=== PATIENT | female | born 1955 | race Caucasian/White ===

== ENCOUNTER 2019-03-11 09:43 | Emergency (ER) | payer OTHER ==
--- NOTE | 2019-03-11 11:37 | ED Physician Documentation ---
PD HPI OPHTHO - Stated complaint Stated Complaint: POST OP CATARACT COMPLICATIONS - Chief complaint Chief Complaint: Heent - History obtained from History obtained from: Patient - History of Present Illness Timing - onset: How many weeks ago (2) Timing - duration: Weeks (2) Timing - details: Gradual onset, Still present Location: Left Quality / character: Aching Associated symptoms: Other (floater and a shadow now). No: Redness, Swelling, Tearing, Discharge, FB sensation Contributing factors: Other (recent cataract surgery) Similar symptoms before: Has not had sx before Recently seen: Surgery - Additional information Additional information: 63-year-old female has returned from [place] where she had a cataract procedure done her left eye. She states the following that her eye site was perfect and she is wearing glasses for reading. 2 weeks ago she began to notice floaters in the left eye. She has had the development of a shadow in the lower visual field today and she has become concerned. She feels her vision is blurred now. Review of Systems Constitutional: denies: Fever, Chills Eyes: reports: Decreased vision. 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 HEENT: Other Psych: Depression Musculoskeletal: None Derm: None - Past Surgical History General: Colonoscopy /LATEX THREAD MACHINE OPERATOR: Hysterectomy - Allergies Allergies/Adverse Reactions: Allergies Allergy/AdvReac Type Severity Reaction Status Date / Time azithromycin Allergy Unknown Verified 03/11/19 09:51 Penicillins Allergy Unknown Verified 03/11/19 09:51 - Social History Does the pt smoke?: Yes Smoking Status: Current every day smoker PD ED PE NORMAL - Vitals Vital signs reviewed: Yes (normal ) - General General: Alert and oriented X 3, No acute distress, Well developed/nourished - HEENT HEENT: Atraumatic, PERRL, EOMI, Other (I am not able to visualize the retina adequately on non-dilated exam. ) - Neck Neck: Supple, no meningeal sign, No bony TTP - Respiratory Respiratory: No respiratory distress - Derm Derm: Normal color, Warm and dry, No rash - Extremities Extremities: No deformity, No edema - Neuro Neuro: Alert and oriented X 3, php architect 2-12 intact, No motor deficit, No sensory deficit, Normal speech Eye Opening: Spontaneous Motor: Obeys Commands Verbal: Oriented GCS Score: 15 - Psych Psych: Normal mood, Normal affect Results - Vitals Vitals: Vital Signs - 24 hr 03/11/19 09:49 Temperature 35.7 C L Heart Rate 86 Respiratory 14 Rate Blood Pressure 126/70 O2 Saturation 97 Oxygen O2 Source Room air Procedures - Bedside sono Bedside sono by EMP: With the use of bedside ultrasound the left eye is examined and there is no gross evidence of retinal detachment. PD MEDICAL DECISION MAKING - ED course Complexity details: considered differential, d/w patient ED course: 63-year-old female status post cataract procedure has developed symptoms in the left eye of floaters and a shadow. Today on exam in the emergency department I am not able to see the retina but on ultrasound exam there is no evidence of gross detachment. I have contacted Dr. Wu and Flory Page and he is graciously agreed to see the patient this afternoon in follow-up. Departure - Departure Disposition: 01 Home, Self Care Clinical Impression: Vitreous floaters of left eye Condition: Stable Instructions: Flashes and Floaters Follow-Up: Enzo Wu MD [Provider Admit Priv/Credential] - Comments: Follow-up with Dr. Wu this afternoon and Flory Page.
[2019-03-11 12:41] VITALS: BP 127/77
== END 2019-03-11 12:39 | disposition home or self-care (01) ==
LOC: ED 09:43
DX: H43.392 Other vitreous opacities, left eye (principal); Z98.42 Cataract extraction status, left eye; E11.9 Type 2 diabetes mellitus without complications; F17.200 Nicotine dependence, unspecified, uncomplicated
CPT/HCPCS: 99281; 99282

== ENCOUNTER 2020-09-01 07:11 | Outpatient (CLI) | payer MEDICAID, MEDICARE ==
[2020-09-01 12:40] LABS: BASOPHILS % (AUTO) 0.5 %; EOSINOPHILS # (AUTO) 0.1 10^3/uL (0.0-0.7); HCT - HEMATOCRIT 39.8 % (37.0-47.0); HGB - HEMOGLOBIN 12.6 g/dL (12.0-16.0); LYMPHOCYTES # (AUTO) 2.2 10^3/uL (1.5-3.5); LYMPHOCYTES % (AUTO) 34.7 %; MEAN CORPUSCULAR HEMOGLOBIN 28.4 pg (27.0-31.0); MEAN CORPUSCULAR HGB CONC 31.7 g/dL (32.0-36.0); MEAN CORPUSCULAR VOLUME 89.8 fL (81.0-99.0); MEAN PLATELET VOLUME 10.1 fL (7.9-10.8); MONOCYTES # (AUTO) 0.3 10^3/uL (0.0-1.0); MONOCYTES % (AUTO) 4.8 %; NEUTROPHILS # (AUTO) 3.7 10^3/uL (1.5-6.6); NEUTROPHILS % (AUTO) 57.8 %; PLT - PLATELET COUNT 264 10^3/uL (130-450); RED BLOOD COUNT 4.43 10^6/uL (4.20-5.40); RED CELL DISTRIBUTION WIDTH 13.2 % (12.0-15.0); WHITE BLOOD COUNT 6.5 x10^3/uL (4.8-10.8)
[2020-09-01 13:24] LABS: ALBUMIN 4.1 g/dL (3.2-5.5); ALBUMIN/GLOBULIN RATIO 1.3 (1.0-2.2); ALKALINE PHOSPHATASE 71 IU/L (42-121); ALT ALANINE AMINOTRANSFERASE 38 IU/L (10-60); AST ASPARTATE AMINOTRANSFERASE 38 IU/L (10-42); BILIRUBIN,TOTAL 0.4 mg/dL (0.2-1.0); BUN - BLOOD UREA NITROGEN 11 mg/dL (6-20); CALCIUM 9.4 mg/dL (8.5-10.3); CARBON DIOXIDE - CO2 24 mmol/L (21-32); CHLORIDE 104 mmol/L (101-111); CHOL/HDL RATIO 4.4 (<4.4); CHOLESTEROL 246 mg/dL; CREATININE 1.1 mg/dL (0.4-1.0); GFR - MDRD 50 (>89); GLUCOSE 128 mg/dL (70-100); HDL CHOLESTEROL 56 mg/dL; LDL CHOLESTEROL,CALCULATED 157 mg/dL; LDL/HDL RATIO 2.8 (<4.4); POTASSIUM 3.7 mmol/L (3.5-5.0); SODIUM 139 mmol/L (135-145); TOTAL PROTEIN 7.2 g/dL (6.7-8.2); TRIGLYCERIDES 166 mg/dL; VLDL CHOLESTEROL 33 mg/dL
[2020-09-01 13:35] LABS: THYROID STIMULATING HORMONE 6.78 uIU/mL (0.34-5.60)
[2020-09-01 13:52] LABS: CREATININE,URINE 260.5 mg/dL; MICROALBUM/CREATININE RATIO,UR 4.6 ug/mg (<30.0); MICROALBUMIN,URINE 1.2 mg/dL (0-300.0)
[2020-09-01 13:54] LABS: ESTIMATED AVERAGE GLUCOSE 134 mg/dL (70-100); HEMOGLOBIN A1c% 6.3 % (4.27-6.07)
[2020-09-01 15:25] LABS: FREE T4 (FREE THYROXINE) 0.97 ng/dL (0.58-1.64)
== END 2020-09-01 23:59 | disposition home or self-care (01) ==
LOC: LAB.WCP 07:11
PROVIDERS: ATTEND Nurse Practitioner
DX: E78.5 Hyperlipidemia, unspecified (principal); R73.03 Prediabetes; K57.90 Diverticulosis of intestine, part unspecified, without perforation or abscess without bleeding
CPT/HCPCS: 36415; 80053; 80061; 82043; 82570; 83036; 83721; 84439; 84443; 85025

== ENCOUNTER 2021-04-01 16:20 | Outpatient (CLI) | payer MEDICARE | END 2021-04-01 23:59 | disposition home or self-care (01) | LOC: LAB.WCP 16:20 | PROVIDERS: ATTEND Physician Assistant Medical | DX: R07.9 Chest pain, unspecified (principal); Z20.822 Contact with and (suspected) exposure to COVID-19 ==

== ENCOUNTER 2021-04-07 10:23 | Outpatient (CLI) | payer MEDICARE ==
--- NOTE | 2021-04-07 16:39 | XRAY Report ---
PROCEDURE: Chest 2 View X-Ray INDICATIONS: CHEST PAIN TECHNIQUE: 2 view(s) of the chest. COMPARISON: None. FINDINGS: Surgical changes and devices: None. Lungs and pleura: No pleural effusions or pneumothorax. Lungs are clear. Mediastinum: Mediastinal contours are normal. Heart size is normal. Bones and chest wall: No suspicious bony abnormalities. Soft tissues appear unremarkable. IMPRESSION: No acute pulmonary process. Reviewed by: Louise Hollins MD on 04/07/2021 4:38 PM PDT Approved by: Louise Hollins MD on 04/07/2021 4:38 PM PDT Station ID: [id number]
== END 2021-04-07 10:24 | disposition home or self-care (01) ==
LOC: DI 10:23
PROVIDERS: ATTEND Physician Assistant Medical
DX: R07.9 Chest pain, unspecified (principal)

== ENCOUNTER 2021-04-09 09:49 | Outpatient (CLI) | payer MEDICARE ==
--- NOTE | 2021-04-09 11:00 | SLEEP CARE CONSULTATION ---
Information from patient questionnaire entered by Nayeli Franks. I have reviewed and concur with the information entered by Nayeli Franks. This document represents the service I personally performed and the decisions made by me, Alona Sawyer ARNP. History of Present Illness Service Date and Time: 04/09/2021 0949 Reason for Visit: New patient Chief Complaint: reports: Insomnia, Unrefreshed sleep, Observed pauses in breathing, Frequent awakenings at night, Other (history of brain tumors) Date of Onset: since 2002 Usual bedtime: 8-9 pm Time it takes to fall asleep: 4 hours Snores at night: No (unknown) Observed to quit breathing while asleep: Yes Number of times waking at night: 3-4 Reasons for waking at night: reports: Bathroom, Other (unknown reason) Toss, Turn, or Twitch while sleeping: Yes Recalls having dreams: Yes Usually gets out of bed at: 5-8 am Feels refreshed in the morning: No Morning headache: No (she wakes up with pressure in her head but not recognizing as headache) Sleepy or fatigued during the day: Yes Ever fallen asleep while driving: No (had to dust puller, drowsy driving, no accidents) Takes day naps: Yes (sometimes) Dreams during day naps: No Prior sleep studies: No Additional HPI information: I had the pleasure of seeing RANULFO MCNAIR today regarding the possibility of her having a sleep disorder. Her current complaints are fatigue, insomnia, observed pauses in breathing, and unrefreshed sleep. She had brain tumor removed in 2002 and has had sleep issues since, it caused isomnia. She has been taking tamazepam and it is not working well anymore. She is taking 4 hours to get to sleep with the medication. She will sleep for 4-5 hours on average with at least 3 awakenings during the night. Some nights she does not sleep at all. She doesn't know if she snores. She was in a motel room with a friend who told her she stopped breathing but didn't mention snoring. She does wake herself up talking. She doesn't dream often. She is almost always tired and does not wake up refreshed. She has history of depression and diabetes. 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 Patient is and lives in [place]. Have you smoked in the past 12 months: Yes Cigarettes per day (20/pack): 0 (maybe 4 per week) Years of smokin (unknown) Smoking Pack Years: 0 Alcohol use: Yes Alcohol amount and frequency: 2-3 beers rarely Caffeine use: Yes Caffeine amount and frequency: 1 cup of coffee in the morning, sometimes a diet pepsi Family History Family history of sleep disordered breathing: No Allergies and Home Medications Drug allergies reviewed: Yes (azithromycin, penicillin, cabbage, erythromycin) Home medication list reviewed: Yes Allergy and home medication list: vitamin D Fluoxetine Bupropion Lisinopril Aspirin Metformin Tamazepam Levocetirzine Pseudoephedrine, prn Ibuprofen, prn Ventolin, prn Review of Systems Weight gain over past 5 years: 10 Cardiovascular: denies: high blood pressure Respiratory: reports: shortness of breath, chronic cough (recent) Gastrointestinal: reports: heartburn (recent) Neurological: reports: seizure (history prior to tumor removal), head trauma (brain tumor) Psychiatric: reports: depression Ear/Nose/Throat: reports: nasal congestion, sinus problems, tonsillectomy, wisdom teeth removed. denies: injury to nose Endocrine: reports: unexplained weakness Musculoskeletal: reports: joint pain Immunologic: reports: sneezing, rash, itching, allergies to food or environment (cabbage) Physical Exam Blood Pressure: 141/73 Cuff size: wrist Heart Rate: 82 O2 Saturation: 98 Height: 5 ft 1 in Weight: 185 lb Body Mass Index: 34.9 BMI Classification: Obese Neck circumference: 14.25 (inches) Mouth and throat: narrow oropharynx Soft palate: normal Hard palate: normal Uvula: normal Uvula visualization: 100% Mallampati Class I Tongue: enlarged in size with teeth haque on lateral edges Tonsils: absent bilaterally Chin and jaw: normal size and position Neck: normal w/o lymphadenopathy or thyromegaly Heart: regular rate and rhythm Lungs: clear bilaterally Impression and Plan 1. Suspected Obstructive Sleep Apnea-Hypopnea Syndrome, as suggested by a history of observed cessation of breath while asleep, frequent awakening during the night, unrefreshed sleep, cognitive impairment, and excessive daytime sleepiness. Narrow oropharynx and obesity are common predisposing factors for obstructive sleep apnea-hypopnea syndrome. I recommend proceeding to polysomnography to confirm the diagnosis and to assess severity. If the patient has significant sleep disordered breathing, a manual CPAP titration study will also be performed to find the optimal treatment pressure. I informed the patient of what the sleep studies involve and after some discussion, obtained agreement to proceed. The pathophysiology of obstructive sleep apnea-hypopnea syndrome was discussed with the patient and health risks of cardiovascular and cerebrovascular disease if not treated. Risks of drowsy driving discussed in detail and patient advised to avoid long distance driving and to dust puller at the first sign of drowsiness. Patient agreed to plan. * Schedule polysomnography +- manual CPAP titration study and return in 1-2 we eks after the study to discuss result and initiate therapy. * Avoid long distance driving or driving when feeling sleepy. * Avoid alcohol, sedative and muscle relaxant around bedtime. * Attempt to lose weight. * Review instructions provided by trained office staff on how to prepare for the sleep study. * Return for follow-up after sleep study completed. Counseling Topics: Weight loss health impact Visit Type: In Office Time Spent with Patient (minutes): 33 Provider Statement: I spent 100% of the Face to Face Visit with the patient with greater than 50% spent counseling the patient and coordination of care.
[2021-04-09 11:01] VITALS: BP 141/73
== END 2021-04-09 09:50 | disposition home or self-care (01) ==
LOC: SC 09:49
PROVIDERS: ATTEND Nurse Practitioner Family
DX: G47.10 Hypersomnia, unspecified (principal); R06.81 Apnea, not elsewhere classified; G47.8 Other sleep disorders; R41.89 Other symptoms and signs involving cognitive functions and awareness; E66.9 Obesity, unspecified; Z68.34 Body mass index [BMI] 34.0-34.9, adult
CPT/HCPCS: 99203; G0463; 99212

== ENCOUNTER 2021-07-29 19:30 | Outpatient (CLI) | payer MEDICARE | END 2021-07-29 19:31 | disposition home or self-care (01) | LOC: SC 19:30 | PROVIDERS: ATTEND Nurse Practitioner Family | DX: G47.10 Hypersomnia, unspecified (principal); G47.8 Other sleep disorders; R06.81 Apnea, not elsewhere classified; E11.9 Type 2 diabetes mellitus without complications; F32.9 Major depressive disorder, single episode, unspecified; G47.61 Periodic limb movement disorder | CPT/HCPCS: 95810 ==

== ENCOUNTER 2024-02-23 10:41 | Outpatient (CLI) | payer MEDICARE ==
[2024-02-23 12:06] LABS: ALBUMIN 4.4 g/dL (3.2-5.5); ALBUMIN/GLOBULIN RATIO 1.6 (1.0-2.2); BILIRUBIN,TOTAL 0.3 mg/dL (0.2-1.0); CREATININE 0.9 mg/dL (0.6-1.3); POTASSIUM 4.8 mmol/L (3.5-4.5); TOTAL PROTEIN 7.1 g/dL (6.4-8.9)
[2024-02-23 12:31] LABS: ESTIMATED AVERAGE GLUCOSE 163 mg/dL (70-100); HEMOGLOBIN A1c% 7.3 % (4.27-6.07)
== END 2024-02-23 10:42 | disposition home or self-care (01) ==
LOC: LAB.N 10:41
PROVIDERS: ATTEND Physician Assistant Medical
DX: R73.03 Prediabetes (principal)
CPT/HCPCS: 36415; 80053; 83036

== ENCOUNTER 2024-03-13 11:17 | Outpatient (CLI) | payer MEDICARE ==
--- NOTE | 2024-03-14 10:37 | Mammography Report ---
BILATERAL DIGITAL SCREENING MAMMOGRAM 3D/2D: 03/13/2024 CLINICAL: Routine screening. Comparison is made to exam dated: 02/12/2018 mammogram - [facility]. Both breasts are almost entirely fatty (category a/<25% glandular tissue). No significant masses, calcifications, or other findings are seen in either breast. There has been no significant interval change. IMPRESSION: NEGATIVE There is no mammographic evidence of malignancy. A 1 year screening mammogram is recommended. Based on the Tyrer Cuzick model (a risk assessment model) the patient's lifetime risk is 2.5% and her 10 year risk is 1.5%. According to the ACR, ACS, and NCCN guidelines, an annual breast MRI exam rachna g with mammogram is recommended if the patient's lifetime risk is 20% or greater. This exam was interpreted at Station ID: [id number]. NOTE: For mammograms, a report in lay terms will be sent to the patient. Approximately 15% of breast malignancies will not be visualized mammographically. In the management of a palpable breast mass, a negative mammogram must not discourage biopsy of a clinically suspicious lesion. Electronically Signed By: Michela chávez/zahraa:03/13/2024 12:53:01 letter sent: No_Letter ACR BI-RADS Category 1: Negative 3341F PARENCHYMAL PATTERN: (F) - The breast(s) demonstrate(s) diffuse fatty replacement. BI-RADS CATEGORY: (1) - 1 RECOMMENDATION: (ANNUAL) - Recommend routine annual screening mammography. [id number] 1 year screening LATERALITY: (B)
== END 2024-03-13 11:18 | disposition home or self-care (01) ==
LOC: DI 11:17
DX: Z12.31 Encounter for screening mammogram for malignant neoplasm of breast (principal)

== ENCOUNTER 2024-05-07 07:14 | Day surgery (SDC) | payer MEDICARE, MEDICAID ==
[2024-05-07] MEDS: LACTATED RINGERS 1,000 ML IV ONE ×2 (07:36→09:11)
[2024-05-07] MEDS ORDERED: PROPOFOL 500 MG/50 ML 500 MG/50 ML VIAL ONE (08:11)
--- NOTE | 2024-05-07 08:22 | ANESTHESIA ---
Pre-Anesthesia VS, & Labs - Diagnosis screening - Procedure colonoscopy Vital Signs: Temp Pulse Resp BP Pulse Ox O2 Flow Rate 36.0 C L 87 14 154/58 H 99 0 05/07/24 07:49 05/07/24 07:49 05/07/24 07:49 05/07/24 07:49 05/07/24 07:49 05/07/24 07:49 Height: 5 ft Weight (kg): 82 kg Body Mass Index: 35.3 BMI Classification: Obese - NPO >8 hours - Is Patient ?: No - Lab Results Current Lab Results: Laboratory Tests 05/07/24 07:54: POC Whole Bld Glucose 186 H Home Medications and Allergies Home Medications: Ambulatory Orders Albuterol Sulf [Ventolin Hfa Inhaler] 1 puffs IH DAILY 05/06/24 Lisinopril [Zestril] 2.5 mg PO DAILY 05/06/24 Pseudoephedrine HCl [Sudafed] 30 mg PO BID 05/06/24 buPROPion [Wellbutrin Sr] 150 mg PO DAILY 05/06/24 metFORMIN [Glucophage] 1,000 mg PO BID 05/06/24 rOPINIRole [Requip] 2 mg PO DAILY 05/06/24 Cholecalciferol (Vitamin D3) [Vitamin D3] 1,250 mcg PO DAILY 05/07/24 Temazepam [Restoril] 30 mg PO DAILY 05/07/24 Tumeric/Ging/Mccaulley/Oreg/Capryl [Candicidal Capsule] 1 each PO DAILY 05/07/24 Albuterol Sulf [Ventolin Hfa Inhaler] 1 puffs IH DAILY 05/06/24 Lisinopril [Zestril] 2.5 mg PO DAILY 05/06/24 Pseudoephedrine HCl [Sudafed] 30 mg PO BID 05/06/24 buPROPion [Wellbutrin Sr] 150 mg PO DAILY 05/06/24 metFORMIN [Glucophage] 1,000 mg PO BID 05/06/24 rOPINIRole [Requip] 2 mg PO DAILY 05/06/24 Cholecalciferol (Vitamin D3) [Vitamin D3] 1,250 mcg PO DAILY 05/07/24 Temazepam [Restoril] 30 mg PO DAILY 05/07/24 Tumeric/Ging/Mccaulley/Oreg/Capryl [Candicidal Capsule] 1 each PO DAILY 05/07/24 Allergies/Adverse Reactions: Allergies Allergy/AdvReac Type Severity Reaction Status Date / Time cedar leaf Allergy Unknown Verified 05/06/24 12:51 erythromycin base Allergy Unknown Verified 05/07/24 07:56 Penicillins Allergy Unknown Verified 03/11/19 09:51 Anes History & Medical History - Anesthetic History Anesthesia Complications: reports: No previous complications Family history of Anesthesia Complications: Denies Family history of Malignant Hyperthermia: Denies - Medical History Cardiovascular: reports: Hypertension, Arrhythmia Pulmonary: reports: Asthma Gastrointestinal: reports: Colon polyps, Chronic diarrhea, Diverticulitis Urinary: reports: None Neuro: reports: Tremors, Other Musculoskeletal: reports: Osteoarthritis Endocrine/Autoimmune: reports: Type 2 diabetes Blood Disorders: reports: None Skin: reports: None Smoking Status: Current every day smoker Psychosocial: reports: No issues indicated - Surgical History General: reports: Appendectomy Gynecologic: reports: Hysterectomy Neurologic: reports: Craniotomy Exam General: Alert, Oriented x3, Cooperative Dental: WNL Mouth Openin Fingerbreadth Neck Mobility: Normal Mallampati classification: II Thyromental Distance: 4-6 cm Respiratory: Lungs clear Cardiovascular: Regular rate Plan Anesthesia Type: General, Total IV Consent for Procedure(s) Verified and Reviewed: Yes Code Status: Attempt Resuscitation ASA classification: 2-Mild systemic disease Is this case an emergency?: No
[2024-05-07] MEDS ORDERED: LIDOCAINE-MPF 2% 5 ML VIAL ONE (08:46)
[2024-05-07 09:37] VITALS: BP 131/64; O2SAT 100
--- NOTE | 2024-05-07 09:38 | ANESTHESIA POST OP EVALUATION ---
Anesthesia Post Eval - Post Anesthesia Eval Vitals: Last Vital Signs Temp 36.0 C L 05/07/24 09:27 Pulse 76 05/07/24 09:27 Resp 16 05/07/24 09:27 BP 131/64 H 05/07/24 09:27 Pulse Ox 100 05/07/24 09:27 O2 Flow Rate 0 05/07/24 07:49 CV Function Including HR & BP: Stable Pain Control: Satisfactory Nausea & Vomiting: Negative Mental Status: Baseline Respiratory Status: Airway Patent Hydration Status: Satisfactory Anesthesia Complications: None
== END 2024-05-07 07:15 | disposition home or self-care (01) ==
LOC: SDS 07:14
PROVIDERS: ATTEND Surgery
PROC: 0DBN8ZZ Excision of Sigmoid Colon, Via Natural or Artificial Opening Endoscopic (ICD-10-PCS; principal; 2024-05-07 08:30)
DX: Z12.11 Encounter for screening for malignant neoplasm of colon (principal); K63.5 Polyp of colon; K57.30 Diverticulosis of large intestine without perforation or abscess without bleeding; K64.9 Unspecified hemorrhoids; E66.9 Obesity, unspecified; E11.9 Type 2 diabetes mellitus without complications; I10 Essential (primary) hypertension; F17.200 Nicotine dependence, unspecified, uncomplicated; Z68.35 Body mass index [BMI] 35.0-35.9, adult; Z79.84 Long term (current) use of oral hypoglycemic drugs
CPT/HCPCS: 45380; J7120

== ENCOUNTER 2024-05-07 13:07 | Emergency (ER) | payer MEDICARE, MEDICAID ==
[2024-05-07 14:51] VITALS: BP 169/70; O2SAT 98
== END 2024-05-07 14:51 | disposition left against medical advice (07) ==
LOC: ED 13:07
DX: Z53.21 Procedure and treatment not carried out due to patient leaving prior to being seen by health care provider (principal)